=== PATIENT | male | born 1970 | race Caucasian/White ===

== ENCOUNTER 2022-03-13 11:49 | Inpatient (IN) | payer OTHER ==
[~2022-03-13 11:49] MED LIST: Amiodarone 150 MG/3 ML VIAL ONE
[2022-03-13 12:32] LABS: #Eosinphils 0.1 thou/uL (0.0-0.7); #Lymphocytes 1.7 thou/uL (1.20-3.40); #Monocytes 0.7 thou/uL (0.11-0.59); #Neutrophils 6.7 thou/uL (1.40-6.50); %Basophils 0.4 % (0.0-1.0); %Eosinophils 1.3 % (0.0-10.0); %Lymphocytes 18.1 % (21.0-51.0); %Monocytes 7.7 % (0.0-10.0); %Neutrophils 72.5 % (42.0-75.0); Hemoglobin 14.4 g/dL (14.0-18.0); Mean Corpuscular HGB CONC 33.6 g/dL (32.0-36.0); Mean Corpuscular Hemoglobin 31.1 pg (27.0-31.0); Mean Corpuscular Volume 92.5 fL (78.0-98.0); Mean Platelet Volume 8.8 fL (7.4-10.4); Platelet Count 180 thou/uL (130-400); RBC Distribution Width 12.4 % (11.5-14.5); Red Blood Cell (RBC) Count 4.64 mill/uL (4.70-6.10); White Blood Cell (WBC) Count 9.2 thou/uL (4.8-10.8)
[2022-03-13] MEDS ORDERED: methylPREDNISolone Sod Succ 40 MG VIAL ONE (12:54)
[2022-03-13] MEDS ORDERED: diphenhydrAMINE 50 MG/ML VIAL ONE (12:54)
[2022-03-13] MEDS ORDERED: Albuterol 200 PUFF (6.7GM INHALER) ONE (12:54)
[2022-03-13] MEDS ORDERED: Famotidine/PF 20 mg/2ml Vial ONE (12:56)
[2022-03-13 12:59] LABS: ALT (SGPT) 39 U/L (8-55); AST (SGOT) 29 U/L (5-34); Albumin 4.5 g/dL (3.5-5.0); Alkaline Phosphatase 97 U/L (40-110); Anion Gap 16 mmol/L (10-20); BUN (Urea Nitrogen) 13 mg/dL (8.4-25.7); Bilirubin, Total 1.5 mg/dL (0.2-1.2); Calc. Creatinine Clearance 0 mL/min (70-130); Carbon Dioxide 21 mmol/L (22-29); Chloride 106 mmol/L (98-107); Estimated GFR 63; Globulin 3.2 g/dL (2.4-3.5); Glucose 169 mg/dL (70-105); Lipase 21 U/L (8-78); Potassium 4.3 mmol/L (3.5-5.1); Protein, Total 7.7 g/dL (6.0-8.3); Sodium 139 mmol/L (136-145)
[2022-03-13] MEDS ORDERED: Furosemide 40 MG/4 ML VIAL ONE (13:10)
[2022-03-13] MEDS ORDERED: Enoxaparin Sodium 100 MG/ML SYRINGE ONE (13:41)
[2022-03-13] MEDS ORDERED: Enoxaparin Sodium 40 MG/0.4 ML SYRINGE ONE (13:41)
[2022-03-13] MEDS ORDERED: Senokot S 8.6-50 MG TAB PO PRN (15:20)
[2022-03-13] MEDS ORDERED: Bisacodyl 5 MG TAB PO PRN (15:20)
[2022-03-13] MEDS ORDERED: Acetaminophen 325 MG TAB PO PRN (15:20)
[2022-03-13] MEDS ORDERED: hydrALAZINE 20 MG/ML VIAL SLOW IVP PRN (15:22)
[2022-03-13 15:58] VITALS: BMI 40.5
[2022-03-13] MEDS ORDERED: Dextrose 5% in Water 1,000 ML IV PRN (16:34)
[2022-03-13] MEDS ORDERED: Dextrose 50% Abboject 50 ML SYRINGE SLOW IVP PRN (16:34)
[2022-03-13] MEDS ORDERED: Diltiazem HCl 125 MG in Premix Bag 1 BAG IVPB SCH (16:45)
[2022-03-13] MEDS: Famotidine 20 MG TAB PO SCH (21:24)
[2022-03-13] MEDS ORDERED: Enoxaparin Sodium 100 MG/ML SYRINGE SC SCH (23:00)
[2022-03-13] MEDS ORDERED: Enoxaparin Sodium 30 MG/0.3 ML SYRINGE SC SCH (23:00)
[2022-03-14] MEDS: Amiodarone 450 MG in Dextrose 5% in Water 250 ML IVPB SCH ×2 (00:38→14:07)
[2022-03-14 03:38] LABS: #Lymphocytes 0.8 thou/uL (1.20-3.40); #Monocytes 0.4 thou/uL (0.11-0.59); #Neutrophils 8.1 thou/uL (1.40-6.50); %Eosinophils 0.4 % (0.0-10.0); %Lymphocytes 8.9 % (21.0-51.0); %Monocytes 4.1 % (0.0-10.0); %Neutrophils 86.7 % (42.0-75.0); Hemoglobin 13.8 g/dL (14.0-18.0); Mean Corpuscular HGB CONC 33.3 g/dL (32.0-36.0); Mean Corpuscular Hemoglobin 30.7 pg (27.0-31.0); Mean Corpuscular Volume 92.1 fL (78.0-98.0); Mean Platelet Volume 8.6 fL (7.4-10.4); Platelet Count 149 thou/uL (130-400); RBC Distribution Width 12.4 % (11.5-14.5); White Blood Cell (WBC) Count 9.4 thou/uL (4.8-10.8)
[2022-03-14 03:50] LABS: Anion Gap 17 mmol/L (10-20); BUN (Urea Nitrogen) 18 mg/dL (8.4-25.7); Calc. Creatinine Clearance 127 mL/min (70-130); Calcium 9.7 mg/dL (7.8-10.44); Carbon Dioxide 17 mmol/L (22-29); Chloride 105 mmol/L (98-107); Estimated GFR 66; Glucose 244 mg/dL (70-105); Potassium 4.2 mmol/L (3.5-5.1); Sodium 135 mmol/L (136-145)
[2022-03-14] MEDS: HumaLOG 300 UNITS/3 ML VIAL SC PRN ×3 (05:40→20:28)
[2022-03-14 06:21] VITALS: BP 126/96
[2022-03-14] MEDS: Enoxaparin Sodium 30 MG/0.3 ML SYRINGE SC SCH ×2 (09:04→20:24)
[2022-03-14] MEDS: Famotidine 20 MG TAB PO SCH ×2 (09:04→20:23)
[2022-03-14] MEDS: Enoxaparin Sodium 100 MG/ML SYRINGE SC SCH ×2 (09:05→20:23)
[2022-03-14] MEDS ORDERED: Digoxin 0.5 MG/2 ML AMP SLOW IVP SCH (12:45)
[2022-03-14] MEDS ORDERED: Furosemide 100 MG/10 ML VIAL SLOW IVP SCH (19:15)
[2022-03-15] MEDS: Amiodarone 450 MG in Dextrose 5% in Water 250 ML IVPB SCH ×2 (02:15→22:52)
[2022-03-15 04:03] LABS: #Eosinphils 0.1 thou/uL (0.0-0.7); #Lymphocytes 2.2 thou/uL (1.20-3.40); #Monocytes 0.8 thou/uL (0.11-0.59); %Basophils 0.4 % (0.0-1.0); %Eosinophils 0.9 % (0.0-10.0); %Monocytes 7.6 % (0.0-10.0); %Neutrophils 69.1 % (42.0-75.0); Hemoglobin 13.8 g/dL (14.0-18.0); Mean Corpuscular Hemoglobin 30.8 pg (27.0-31.0); Mean Corpuscular Volume 93.2 fL (78.0-98.0); Mean Platelet Volume 8.9 fL (7.4-10.4); Platelet Count 154 thou/uL (130-400); RBC Distribution Width 12.4 % (11.5-14.5); Red Blood Cell (RBC) Count 4.48 mill/uL (4.70-6.10); White Blood Cell (WBC) Count 10.1 thou/uL (4.8-10.8)
[2022-03-15 04:14] LABS: Anion Gap 18 mmol/L (10-20); BUN (Urea Nitrogen) 23 mg/dL (8.4-25.7); Calc. Creatinine Clearance 105 mL/min (70-130); Calcium 9.7 mg/dL (7.8-10.44); Carbon Dioxide 22 mmol/L (22-29); Chloride 103 mmol/L (98-107); Estimated GFR 56; Glucose 121 mg/dL (70-105); Potassium 3.7 mmol/L (3.5-5.1); Sodium 139 mmol/L (136-145)
[2022-03-15] MEDS ORDERED: Furosemide 100 MG/10 ML VIAL SLOW IVP SCH (06:00)
[2022-03-15] MEDS: Enoxaparin Sodium 100 MG/ML SYRINGE SC SCH ×2 (07:57→20:58)
[2022-03-15] MEDS: Enoxaparin Sodium 30 MG/0.3 ML SYRINGE SC SCH ×2 (07:58→20:58)
[2022-03-15] MEDS: Famotidine 20 MG TAB PO SCH ×3 (07:58→20:59)
[2022-03-15] MEDS: Spironolactone 25 MG TAB PO SCH (08:53)
[2022-03-15] MEDS ORDERED: Digoxin 0.25 MG TAB PO SCH (09:00)
[2022-03-15] MEDS: Benzonatate 100 MG CAP PO PRN (13:52)
[2022-03-16 05:58] LABS: #Eosinphils 0.2 thou/uL (0.0-0.7); #Lymphocytes 1.5 thou/uL (1.20-3.40); #Monocytes 0.7 thou/uL (0.11-0.59); #Neutrophils 5.1 thou/uL (1.40-6.50); %Eosinophils 2.2 % (0.0-10.0); %Lymphocytes 20.4 % (21.0-51.0); %Neutrophils 68.5 % (42.0-75.0); Hemoglobin 13.9 g/dL (14.0-18.0); Mean Corpuscular HGB CONC 32.7 g/dL (32.0-36.0); Mean Corpuscular Hemoglobin 30.5 pg (27.0-31.0); Mean Corpuscular Volume 93.1 fL (78.0-98.0); Mean Platelet Volume 8.1 fL (7.4-10.4); Platelet Count 144 thou/uL (130-400); RBC Distribution Width 12.4 % (11.5-14.5); Red Blood Cell (RBC) Count 4.57 mill/uL (4.70-6.10); White Blood Cell (WBC) Count 7.5 thou/uL (4.8-10.8)
[2022-03-16 06:41] LABS: Anion Gap 13 mmol/L (10-20); BUN (Urea Nitrogen) 24 mg/dL (8.4-25.7); Calc. Creatinine Clearance 105 mL/min (70-130); Calcium 9.3 mg/dL (7.8-10.44); Carbon Dioxide 25 mmol/L (22-29); Chloride 104 mmol/L (98-107); Estimated GFR 55; Glucose 120 mg/dL (70-105); Potassium 3.4 mmol/L (3.5-5.1); Sodium 139 mmol/L (136-145)
[2022-03-16] MEDS: Famotidine 20 MG TAB PO SCH ×2 (09:11→20:57)
[2022-03-16] MEDS: Furosemide 40 MG TAB PO SCH (09:11)
[2022-03-16] MEDS: Enoxaparin Sodium 100 MG/ML SYRINGE SC SCH ×2 (09:11→20:56)
[2022-03-16] MEDS: Spironolactone 25 MG TAB PO SCH (09:11)
[2022-03-16] MEDS: Enoxaparin Sodium 30 MG/0.3 ML SYRINGE SC SCH ×2 (09:12→20:56)
[2022-03-16] MEDS ORDERED: Ketamine 50 MG/ML (10ML VIAL) ONE (12:54)
[2022-03-16] MEDS ORDERED: PROPOFOL 200 MG/20 ML VIAL ONE (13:05)
[2022-03-16] MEDS ORDERED: Lidocaine 1% PF 5 ML VIAL ONE (13:05)
[2022-03-16] MEDS ORDERED: Phenylephrine 10 MG/ML VIAL ONE (13:05)
[2022-03-16] MEDS: HumaLOG 300 UNITS/3 ML VIAL SC PRN (17:47)
[2022-03-16] MEDS: Amiodarone 200 MG TAB PO SCH (20:57)
[2022-03-17 03:47] LABS: #Eosinphils 0.2 thou/uL (0.0-0.7); #Lymphocytes 1.6 thou/uL (1.20-3.40); #Monocytes 0.6 thou/uL (0.11-0.59); #Neutrophils 4.1 thou/uL (1.40-6.50); %Basophils 0.6 % (0.0-1.0); %Eosinophils 2.4 % (0.0-10.0); %Lymphocytes 24.2 % (21.0-51.0); %Monocytes 9.5 % (0.0-10.0); %Neutrophils 63.3 % (42.0-75.0); Hemoglobin 13.9 g/dL (14.0-18.0); Mean Corpuscular HGB CONC 33.5 g/dL (32.0-36.0); Mean Corpuscular Hemoglobin 30.8 pg (27.0-31.0); Mean Platelet Volume 8.1 fL (7.4-10.4); Platelet Count 142 thou/uL (130-400); RBC Distribution Width 12.4 % (11.5-14.5); Red Blood Cell (RBC) Count 4.52 mill/uL (4.70-6.10); White Blood Cell (WBC) Count 6.4 thou/uL (4.8-10.8)
[2022-03-17 04:07] LABS: Anion Gap 14 mmol/L (10-20); BUN (Urea Nitrogen) 20 mg/dL (8.4-25.7); Calc. Creatinine Clearance 131 mL/min (70-130); Calcium 9.1 mg/dL (7.8-10.44); Carbon Dioxide 21 mmol/L (22-29); Chloride 108 mmol/L (98-107); Estimated GFR 72; Glucose 169 mg/dL (70-105); Potassium 3.3 mmol/L (3.5-5.1); Sodium 140 mmol/L (136-145)
[2022-03-17] MEDS ORDERED: Potassium Chloride 20 MEQ TAB PO SCH (08:00)
[2022-03-17] MEDS: Enoxaparin Sodium 100 MG/ML SYRINGE SC SCH ×2 (08:45→20:20)
[2022-03-17] MEDS: Famotidine 20 MG TAB PO SCH ×2 (08:45→20:19)
[2022-03-17] MEDS: Enoxaparin Sodium 30 MG/0.3 ML SYRINGE SC SCH ×2 (08:45→20:21)
[2022-03-17] MEDS: Spironolactone 25 MG TAB PO SCH (08:45)
[2022-03-17] MEDS: Amiodarone 200 MG TAB PO SCH (08:46)
[2022-03-17] MEDS: Furosemide 40 MG TAB PO SCH (08:50)
[2022-03-17] MEDS: HumaLOG 300 UNITS/3 ML VIAL SC PRN (12:09)
[2022-03-17] MEDS ORDERED: diphenhydrAMINE 25 MG CAP PO PRN (13:36)
[2022-03-17] MEDS: Benzonatate 100 MG CAP PO PRN (13:50)
[2022-03-17] MEDS ORDERED: Furosemide 40 MG TAB PO SCH (20:00)
[2022-03-18 03:57] LABS: #Eosinphils 0.2 thou/uL (0.0-0.7); #Lymphocytes 1.8 thou/uL (1.20-3.40); #Monocytes 0.6 thou/uL (0.11-0.59); #Neutrophils 4.1 thou/uL (1.40-6.50); %Basophils 0.2 % (0.0-1.0); %Eosinophils 3.5 % (0.0-10.0); %Lymphocytes 26.4 % (21.0-51.0); %Monocytes 9.5 % (0.0-10.0); %Neutrophils 60.4 % (42.0-75.0); Hemoglobin 14.2 g/dL (14.0-18.0); Mean Corpuscular HGB CONC 31.8 g/dL (32.0-36.0); Mean Corpuscular Hemoglobin 30.4 pg (27.0-31.0); Mean Corpuscular Volume 95.6 fL (78.0-98.0); Mean Platelet Volume 8.5 fL (7.4-10.4); Platelet Count 142 thou/uL (130-400); RBC Distribution Width 12.6 % (11.5-14.5); Red Blood Cell (RBC) Count 4.69 mill/uL (4.70-6.10); White Blood Cell (WBC) Count 6.8 thou/uL (4.8-10.8)
[2022-03-18 04:18] LABS: Anion Gap 9 mmol/L (10-20); BUN (Urea Nitrogen) 17 mg/dL (8.4-25.7); Calc. Creatinine Clearance 132 mL/min (70-130); Calcium 8.8 mg/dL (7.8-10.44); Carbon Dioxide 28 mmol/L (22-29); Chloride 105 mmol/L (98-107); Estimated GFR 73; Glucose 178 mg/dL (70-105); Potassium 3.4 mmol/L (3.5-5.1); Sodium 139 mmol/L (136-145)
[2022-03-18] MEDS: Furosemide 40 MG TAB PO SCH ×2 (08:37→12:31)
[2022-03-18] MEDS: Famotidine 20 MG TAB PO SCH ×2 (08:37→21:48)
[2022-03-18] MEDS: Amiodarone 200 MG TAB PO SCH ×2 (08:37→21:48)
[2022-03-18] MEDS: Spironolactone 25 MG TAB PO SCH (08:37)
[2022-03-18] MEDS: Enoxaparin Sodium 30 MG/0.3 ML SYRINGE SC SCH ×2 (08:38→21:49)
[2022-03-18] MEDS: Enoxaparin Sodium 100 MG/ML SYRINGE SC SCH ×2 (08:38→21:49)
[2022-03-18] MEDS ORDERED: metFORMIN 500 MG TAB PO SCH (17:45)
[2022-03-18] MEDS: HumaLOG 300 UNITS/3 ML VIAL SC PRN (17:46)
[2022-03-19 03:43] LABS: #Eosinphils 0.3 thou/uL (0.0-0.7); #Lymphocytes 1.6 thou/uL (1.20-3.40); #Monocytes 0.6 thou/uL (0.11-0.59); #Neutrophils 4.6 thou/uL (1.40-6.50); %Eosinophils 4.2 % (0.0-10.0); %Lymphocytes 22.5 % (21.0-51.0); %Monocytes 8.9 % (0.0-10.0); %Neutrophils 64.4 % (42.0-75.0); Hemoglobin 14.7 g/dL (14.0-18.0); Mean Corpuscular HGB CONC 33.7 g/dL (32.0-36.0); Mean Corpuscular Hemoglobin 31.2 pg (27.0-31.0); Mean Corpuscular Volume 92.6 fL (78.0-98.0); Mean Platelet Volume 7.8 fL (7.4-10.4); Platelet Count 150 thou/uL (130-400); RBC Distribution Width 12.4 % (11.5-14.5); Red Blood Cell (RBC) Count 4.71 mill/uL (4.70-6.10); White Blood Cell (WBC) Count 7.2 thou/uL (4.8-10.8)
[2022-03-19 03:53] LABS: Anion Gap 13 mmol/L (10-20); BUN (Urea Nitrogen) 14 mg/dL (8.4-25.7); Calc. Creatinine Clearance 133 mL/min (70-130); Calcium 9.1 mg/dL (7.8-10.44); Carbon Dioxide 25 mmol/L (22-29); Chloride 104 mmol/L (98-107); Estimated GFR 75; Glucose 230 mg/dL (70-105); Potassium 3.5 mmol/L (3.5-5.1); Sodium 138 mmol/L (136-145)
[2022-03-19] MEDS: Furosemide 40 MG TAB PO SCH ×2 (07:48→13:38)
[2022-03-19] MEDS: Amiodarone 200 MG TAB PO SCH ×2 (07:48→19:45)
[2022-03-19] MEDS: metFORMIN 500 MG TAB PO SCH ×2 (07:48→17:14)
[2022-03-19] MEDS: Enoxaparin Sodium 30 MG/0.3 ML SYRINGE SC SCH (07:49)
[2022-03-19] MEDS: Famotidine 20 MG TAB PO SCH (07:49)
[2022-03-19] MEDS: Enoxaparin Sodium 100 MG/ML SYRINGE SC SCH (07:49)
[2022-03-19] MEDS: Spironolactone 25 MG TAB PO SCH (07:49)
[2022-03-19] MEDS ORDERED: Glimepiride 2 MG TAB PO SCH ×2 (08:00→17:00)
[2022-03-19] MEDS ORDERED: Cholecalciferol 1,000 UNITS (25 MCG) TAB PO SCH (09:00)
[2022-03-19] MEDS ORDERED: Apixaban 5 MG TAB PO SCH (18:00)
[2022-03-19 19:26] VITALS: TEMP 98
== END 2022-03-19 19:50 | disposition home or self-care (01) | DRG 308 ==
LOC: ERS 11:49 → IMCU/EMU 14:01
PROVIDERS: ADMIT Internal Medicine; ATTEND Internal Medicine
PROC: 5A2204Z Restoration of Cardiac Rhythm, Single (ICD-10-PCS; principal; 2022-03-16)
PROC: B24BZZ4 Ultrasonography of Heart with Aorta, Transesophageal (ICD-10-PCS; 2022-03-16)
DX: I48.19 Other persistent atrial fibrillation (principal); I50.23 Acute on chronic systolic (congestive) heart failure; Z20.822 Contact with and (suspected) exposure to COVID-19; E11.9 Type 2 diabetes mellitus without complications; E78.5 Hyperlipidemia, unspecified; F17.210 Nicotine dependence, cigarettes, uncomplicated; I11.0 Hypertensive heart disease with heart failure; I42.0 Dilated cardiomyopathy; E66.01 Morbid (severe) obesity due to excess calories; G47.33 Obstructive sleep apnea (adult) (pediatric); I34.0 Nonrheumatic mitral (valve) insufficiency; E87.6 Hypokalemia; Z90.49 Acquired absence of other specified parts of digestive tract; Z91.041 Radiographic dye allergy status; Z88.8 Allergy status to other drugs, medicaments and biological substances; Z79.84 Long term (current) use of oral hypoglycemic drugs; Z68.38 Body mass index [BMI] 38.0-38.9, adult; Z79.899 Other long term (current) drug therapy
CPT/HCPCS: 36415; 36416; 71045; 80048; 80053; 83690; 83735; 83880; 84443; 84484; 85025; 92960; 93005; 93010; 93306; 93312; 94760; 96372; 96374; 96375; 96376; 97139; J0282; J1160; J1200; J1650; J1815; J1940; J2370; J2704; J2920; J7070; S0028

== ENCOUNTER 2022-04-17 11:50 | Outpatient (CLI) | payer OTHER ==
[2022-04-17 12:45] LABS: #Basophils 0.1 10x3/uL (0.0-0.2); #Eosinphils 0.6 10x3/uL (0.0-0.5); #Monocytes 0.6 10x3/uL (0.0-1.1); #Neutrophils 5.3 10x3/uL (1.5-8.4); %Eosinophils 7.7 % (0.0-6.0); %Lymphocytes 16.9 % (18.0-47.0); %Monocytes 7.5 % (0.0-10.0); %Neutrophils 65.9 % (40.0-75.0); Hemoglobin 14.1 g/dL (13.5-17.5); Mean Corpuscular HGB CONC 33.7 g/dL (32.0-36.0); Mean Corpuscular Hemoglobin 29.3 pg (27.0-33.0); Mean Corpuscular Volume 86.7 fl (81.2-95.1); Mean Platelet Volume 9.6 fl (7.4-10.4); Platelet Count 125 10x3/uL (150-450); RBC Distribution Width 12.2 % (11.5-14.5); Red Blood Cell (RBC) Count 4.82 10x6/uL (4.32-5.72)
[2022-04-17 13:08] LABS: ALT (SGPT) 52 U/L (8-55); AST (SGOT) 28 U/L (5-34); Albumin 4.5 g/dL (3.5-5.0); Alkaline Phosphatase 164 U/L (40-110); Anion Gap 19 mmol/L (10-20); BUN (Urea Nitrogen) 40 mg/dL (8.4-25.7); Bilirubin, Total 1.1 mg/dL (0.2-1.2); Calc. Creatinine Clearance 0 mL/min (70-130); Calcium 9.7 mg/dL (7.8-10.44); Carbon Dioxide 19 mmol/L (22-29); Chloride 107 mmol/L (98-107); Estimated GFR 34; Globulin 3.4 g/dL (2.4-3.5); Glucose 189 mg/dL (70-105); Potassium 5.5 mmol/L (3.5-5.1); Protein, Total 7.9 g/dL (6.0-8.3); Sodium 139 mmol/L (136-145)
== END 2022-04-17 11:51 | disposition home or self-care (01) ==
LOC: LABBT 11:50
PROVIDERS: ATTEND Internal Medicine Cardiovascular Disease
DX: Z01.812 Encounter for preprocedural laboratory examination (principal); Z20.822 Contact with and (suspected) exposure to COVID-19
CPT/HCPCS: 80053; 85025; 87811

== ENCOUNTER 2022-05-04 05:49 | Day surgery (SDC) | payer OTHER ==
[2022-05-02 15:17] VITALS: BMI 37.3
[2022-05-04] MEDS ORDERED: Verapamil 5 MG/2 ML VIAL ONE (06:32)
[2022-05-04] MEDS ORDERED: Nitroglycerin 100MG/250ML BOT 250 ML ONE (06:32)
[2022-05-04] MEDS ORDERED: Lidocaine 1% MPF 2 ML VIAL ONE (06:32)
[2022-05-04] MEDS ORDERED: Heparin 10,000 UNITS/ 10 ML VIAL ONE (06:32)
[2022-05-04 07:15] LABS: ALT (SGPT) 38 U/L (8-55); AST (SGOT) 34 U/L (5-34); Albumin 3.8 g/dL (3.5-5.0); Alkaline Phosphatase 177 U/L (40-110); Anion Gap 17 mmol/L (10-20); BUN (Urea Nitrogen) 23 mg/dL (8.4-25.7); Bilirubin, Total 0.6 mg/dL (0.2-1.2); Calc. Creatinine Clearance 89 mL/min (70-130); Calcium 9.5 mg/dL (7.8-10.44); Carbon Dioxide 19 mmol/L (22-29); Cardiac Risk 5.4 (Less than 4.5); Chloride 104 mmol/L (98-107); Cholesterol 173 mg/dl (< 200 Desired); Estimated GFR 48; Globulin 3.9 g/dL (2.4-3.5); Glucose 320 mg/dL (70-105); HDL Cholesterol 32 mg/dL (>60 Neg Risk); LDL Cholesterol, Calculated 101 mg/dL; Potassium 4.8 mmol/L (3.5-5.1); Protein, Total 7.7 g/dL (6.0-8.3); Sodium 135 mmol/L (136-145); Triglycerides 199 mg/dL (Less than 150)
[2022-05-04] MEDS ORDERED: Hydrocortisone Sod Succ/PF 100 mg/2 ml Vial ONE (07:37)
[2022-05-04] MEDS ORDERED: diphenhydrAMINE 50 MG/ML VIAL ONE (07:37)
[2022-05-04] MEDS ORDERED: EPINEPHrine 1 MG/10 ML Abboject SYRINGE ONE (07:38)
[2022-05-04] MEDS ORDERED: Famotidine/PF 20 mg/2ml Vial ONE (07:38)
[2022-05-04] MEDS ORDERED: Fentanyl 100 MCG/2 ML VIAL ONE (07:50)
[2022-05-04] MEDS ORDERED: Midazolam HCl 2 mg/2 ml Vial ONE (07:51)
[2022-05-04] MEDS ORDERED: Iopamidol 370 76% 100 ML VIAL ONE (14:54)
== END 2022-05-04 10:25 | disposition home or self-care (01) ==
LOC: CCL 05:49
PROVIDERS: ATTEND Internal Medicine Cardiovascular Disease
PROC: B2111ZZ Fluoroscopy of Multiple Coronary Arteries using Low Osmolar Contrast (ICD-10-PCS; principal; 2022-05-04)
PROC: 4A023N7 Measurement of Cardiac Sampling and Pressure, Left Heart, Percutaneous Approach (ICD-10-PCS; principal; 2022-05-04)
DX: I42.0 Dilated cardiomyopathy (principal); I25.10 Atherosclerotic heart disease of native coronary artery without angina pectoris; Q24.5 Malformation of coronary vessels; I48.0 Paroxysmal atrial fibrillation; E11.9 Type 2 diabetes mellitus without complications; E78.5 Hyperlipidemia, unspecified; I10 Essential (primary) hypertension; E66.9 Obesity, unspecified; Z68.37 Body mass index [BMI] 37.0-37.9, adult; Z79.01 Long term (current) use of anticoagulants; Z79.52 Long term (current) use of systemic steroids; Z79.84 Long term (current) use of oral hypoglycemic drugs; Z79.899 Other long term (current) drug therapy; Z91.018 Allergy to other foods; Z91.041 Radiographic dye allergy status
CPT/HCPCS: 36415; 36416; 80053; 80061; 93458; 99152; 99153; C1769; C1894; J0171; J1200; J1644; J1720; J2250; J3010; Q9967; S0028

== ENCOUNTER 2022-05-11 08:10 | Outpatient (CLI) | payer OTHER ==
[2022-05-11 13:29] LABS: Hemoglobin 12.3 g/dL (13.5-17.5); Mean Corpuscular HGB CONC 33.8 g/dL (32.0-36.0); Mean Corpuscular Hemoglobin 30.2 pg (27.0-33.0); Mean Corpuscular Volume 89.4 fl (81.2-95.1); Mean Platelet Volume 9.8 fl (7.4-10.4); Platelet Count 116 10x3/uL (150-450); RBC Distribution Width 15.4 % (11.5-14.5); Red Blood Cell (RBC) Count 4.07 10x6/uL (4.32-5.72); White Blood Cell (WBC) Count 7.1 10x3/uL (3.5-10.5)
[2022-05-11 13:49] LABS: ALT (SGPT) 31 U/L (8-55); AST (SGOT) 18 U/L (5-34); Albumin 4.1 g/dL (3.5-5.0); Alkaline Phosphatase 126 U/L (40-110); Anion Gap 17 mmol/L (10-20); BUN (Urea Nitrogen) 18 mg/dL (8.4-25.7); Calc. Creatinine Clearance 0 mL/min (70-130); Calcium 9.5 mg/dL (7.8-10.44); Carbon Dioxide 25 mmol/L (22-29); Chloride 105 mmol/L (98-107); Estimated GFR 51; Globulin 2.7 g/dL (2.4-3.5); Glucose 122 mg/dL (70-105); Potassium 4.9 mmol/L (3.5-5.1); Protein, Total 6.8 g/dL (6.0-8.3); Sodium 142 mmol/L (136-145)
== END 2022-05-11 08:11 | disposition home or self-care (01) ==
LOC: LABBT 08:10
PROVIDERS: ATTEND Internal Medicine Cardiovascular Disease
DX: Z01.812 Encounter for preprocedural laboratory examination (principal); G95.9 Disease of spinal cord, unspecified; Z20.822 Contact with and (suspected) exposure to COVID-19
CPT/HCPCS: 80053; 85027; 87811

== ENCOUNTER 2022-05-16 05:37 | Day surgery (SDC) | payer OTHER ==
[2022-05-11 15:26] VITALS: BMI 38.0
[2022-05-16] MEDS ORDERED: Fentanyl 100 MCG/2 ML VIAL ONE (06:26)
[2022-05-16] MEDS ORDERED: Midazolam HCl 2 mg/2 ml Vial ONE (06:26)
[2022-05-16] MEDS ORDERED: Heparin 10,000 UNITS/ 10 ML VIAL ONE (06:27)
[2022-05-16] MEDS ORDERED: Nitroglycerin 100MG/250ML BOT 0 ML ONE (06:27)
[2022-05-16] MEDS ORDERED: Lidocaine 1% PF 5 ML VIAL ONE (06:27)
[2022-05-16] MEDS ORDERED: Nitroglycerin 100MG/250ML BOT 250 ML ONE (06:39)
[2022-05-16] MEDS ORDERED: diphenhydrAMINE 50 MG/ML VIAL ONE (06:44)
[2022-05-16] MEDS ORDERED: Famotidine/PF 20 mg/2ml Vial ONE (06:45)
[2022-05-16] MEDS ORDERED: Hydrocortisone Sod Succ/PF 100 mg/2 ml Vial ONE (06:45)
[2022-05-16] MEDS ORDERED: TICAGRELOR 90 MG TABLET ONE ×2 (08:55→09:00)
[2022-05-16] MEDS ORDERED: EPINEPHrine 1 MG/ML AMP ONE (08:55)
[2022-05-16] MEDS ORDERED: Iopamidol 370 76% 100 ML VIAL ONE (15:38)
== END 2022-05-16 11:49 | disposition home or self-care (01) ==
LOC: CCL 05:37
PROVIDERS: ATTEND Internal Medicine Cardiovascular Disease
DX: I25.10 Atherosclerotic heart disease of native coronary artery without angina pectoris (principal); I42.0 Dilated cardiomyopathy; Z79.01 Long term (current) use of anticoagulants; Z79.02 Long term (current) use of antithrombotics/antiplatelets; Z79.52 Long term (current) use of systemic steroids; Z79.82 Long term (current) use of aspirin; Z79.84 Long term (current) use of oral hypoglycemic drugs; Z79.899 Other long term (current) drug therapy; Z91.018 Allergy to other foods; Z91.041 Radiographic dye allergy status
CPT/HCPCS: 85347; 92928; 93005; 93010; 93452; 99152; 99153; C1725; C1769; C1876; C9600; J0171; J1200; J1644; J1720; J2250; J3010; Q9967; S0028